=== PATIENT | male | born 1955 | race Caucasian/White ===

== ENCOUNTER 2020-03-07 20:18 | Inpatient (IN) | payer OTHER, SELFPAY ==
[~2020-03-07] VITALS: Ht 170.2 cm; Wt 96.6 kg
[2020-03-07 20:26] VITALS: BP_SYST 129
[2020-03-07 21:39] LABS: INR 1.1 (0.80-1.20); PROTHROMBIN TIME 10.8 SECS (9.5-12.5)
[2020-03-07 21:53] LABS: BASOPHILS % (AUTO) 0.1 % (0.0-2.0); HEMATOCRIT 44.5 % (36-54); HEMOGLOBIN 15.1 g/dL (14.0-18.0); LYMPHOCYTES # (AUTO) 0.7 K/uL (1.0-5.5); MEAN CORPUSCULAR HEMOGLOBIN 32 pg (27-31); MEAN CORPUSCULAR HGB CONC 34 % (32-36); MEAN CORPUSCULAR VOLUME 95 fL (79.0-98.0); MONOCYTES # (AUTO) 2.4 K/uL (0.0-1.0); MONOCYTES % (AUTO) 9.7 % (1.7-9.3); NEUTROPHILS # (AUTO) 21.6 K/uL (1.8-7.7); NEUTROPHILS % (AUTO) 87.2 % (40.0-70.0); PLATELET COUNT (AUTO) 166 K/uL (130-430); RED BLOOD CELL COUNT(AUTO) 4.68 MIL/uL (4.2-6.2); RED CELL DISTRIBUTION WIDTH 12.9 % (9.0-15.0); WHITE BLOOD COUNT (AUTO) 24.8 K/uL (4.8-10.8)
[2020-03-07 21:56] LABS: CALCIUM 8.7 mg/dL (8.4-11.0); CREATININE 0.78 mg/dL (0.55-1.30); POTASSIUM 3.6 mmol/L (3.5-5.1)
[2020-03-07 22:06] LABS: TOTAL BILIRUBIN 1.3 mg/dL (0.0-1.0)
[2020-03-07 22:24] LABS: C-REACTIVE PROTEIN QUANT 5.4 mg/dL (0-0.5)
[2020-03-07 22:33] LABS: BILIRUBIN,URINE NEGATIVE (NEGATIVE); CLARITY/URINE SL CLOUDY (CLEAR); COLOR,URINE YELLOW (YELLOW); GLUCOSE,URINE TRACE (NEGATIVE); KETONES,URINE TRACE (NEGATIVE); LEUKOCYTE ESTERASE ,URINE 2+ (NEGATIVE); NITRITE, URINE POSITIVE (NEGATIVE); PH,URINE 5.5 (5.0-8.0); PROTEIN URINE 1+ (NEGATIVE)
[2020-03-07] MEDS ORDERED: BACL10TA PO (22:38)
[2020-03-07] MEDS ORDERED: ASCO500T20 PO (22:38)
[2020-03-07] MEDS ORDERED: LIP20 PO (22:38)
[2020-03-07] MEDS ORDERED: DOCU250C14 PO (22:38)
[2020-03-07] MEDS ORDERED: VITD2000 PO (22:38)
[2020-03-07] MEDS ORDERED: DIPH25CA83 PO (22:38)
[2020-03-07] MEDS ORDERED: CLOP75TA32 PO (22:38)
[2020-03-07] MEDS ORDERED: ASPI-1155 PO (22:38)
[2020-03-07] MEDS ORDERED: CEL20 PO (22:38)
[2020-03-07] MEDS ORDERED: GLU500 PO (22:38)
[2020-03-07] MEDS ORDERED: ZINC220T4 PO (22:38)
[2020-03-07] MEDS ORDERED: NEU300 PO (22:38)
[2020-03-07] MEDS ORDERED: TRAZ-250 PO (22:38)
[2020-03-07] MEDS ORDERED: LEVE500T9 PO (22:38)
[2020-03-07 22:55] LABS: BLOOD, URINE TRACE (NEGATIVE)
[2020-03-07 23:08] LABS: BACTERIA,URINE MANY /HPF (None Seen); WBC,URINE 80-100 /HPF (0-3)
[2020-03-07 23:10] LABS: MUCUS,URINE None Seen /LPF (None Seen); URINE AMORPHOUS URATE 2+ /HPF (None Seen)
[2020-03-07] MEDS ORDERED: cefTRIAXone 1 GM IVPB PREMIX 50 ML IV ONE (23:30)
[2020-03-07] MEDS ORDERED: AZITHROMYCIN 500 MG in NS 250 ML IV ONE (23:30)
[2020-03-08] MEDS ORDERED: cefTRIAXone 1 GM VIAL ONE (00:03)
[2020-03-08] MEDS ORDERED: NACL 0.9% 1,000 ML IV ONE ×2 (03:30)
[2020-03-08] MEDS ORDERED: DOXYCYCLINE HYCLATE 100 MG CAPSULE ONE (03:55)
[2020-03-08] MEDS ORDERED: DOXYCYCLINE HYCLATE 100 MG CAPSULE PO ONE (04:00)
[2020-03-08] MEDS: PIPERACILLIN/TAZO 3.375 GM in NS 50 ML IV SCH ×3 (06:00→16:55)
[2020-03-08] MEDS ORDERED: *LOVENOX 1MG/KG Q12H/PHARMACY XX ONE (09:30)
[2020-03-08] MEDS ORDERED: ALBUTEROL MDI INHALATION 8 GM INH INH SCH (10:15)
[2020-03-08] MEDS ORDERED: ALBUTEROL MDI INHALATION 8 GM INH INH PRN (10:15)
[2020-03-08] MEDS ORDERED: GABAPENTIN 300 MG CAPSULE PO ONE (11:00)
[2020-03-08] MEDS ORDERED: ASPIRIN 81 MG TAB.CHEW PO ONE (11:00)
[2020-03-08] MEDS ORDERED: CHOLECALCIFEROL (VITAMIN D3) 2,000 UNIT TABLET PO ONE (11:00)
[2020-03-08] MEDS ORDERED: BACLOFEN 10 MG TABLET PO ONE (11:00)
[2020-03-08] MEDS ORDERED: CITALOPRAM HYDROBROMIDE 20 MG TABLET PO ONE (11:00)
[2020-03-08] MEDS ORDERED: ASCORBIC ACID 500 MG TABLET PO ONE (11:00)
[2020-03-08] MEDS ORDERED: CLOPIDOGREL BISULFATE 75 MG TABLET PO ONE (11:00)
[2020-03-08] MEDS ORDERED: levETIRAcetam 500 MG TABLET PO ONE (11:00)
[2020-03-08] MEDS ORDERED: DOCUSATE SODIUM 250 MG CAPSULE PO ONE (11:00)
[2020-03-08 12:37] VITALS: BP_SYST 125
[2020-03-08] MEDS: BACLOFEN 10 MG TABLET PO SCH ×2 (14:20→21:00)
[2020-03-08] MEDS ORDERED: DIPHENHYDRAMINE HCL 25 MG CAPSULE PO PRN (14:45)
[2020-03-08] MEDS ORDERED: DIPHENHYDRAMINE HCL 25 MG CAPSULE PO SCH (15:00)
[2020-03-08 15:27] VITALS: BP_SYST 127
[2020-03-08] MEDS: NACL 0.9% 1,000 ML IV SCH (15:28)
[2020-03-08] MEDS: ACETAMINOPHEN 325 MG TABLET PO PRN (15:28)
[2020-03-08] MEDS: INSULIN REGULAR, HUMAN 100 UNITS/ML, 10 ML VIAL (humuLIN R) SUBCUT PRN (16:25)
[2020-03-08 20:00] VITALS: BP_SYST 144
[2020-03-08] MEDS: GABAPENTIN 300 MG CAPSULE PO SCH (21:00)
[2020-03-08] MEDS: ENOXAPARIN SODIUM 40 MG/0.4 ML SYRINGE SUBCUT SCH (21:00)
[2020-03-08] MEDS: traZODone HCL 50 MG TABLET (DESYREL) PO SCH (21:00)
[2020-03-08] MEDS: ATORVASTATIN 20 MG TABLET PO SCH (21:00)
[2020-03-08] MEDS ORDERED: TAMSULOSIN HCL 0.4 MG CAP PO SCH (21:00)
[2020-03-08] MEDS: LACTOBACILLUS RHAMNOSUS GG 1 CAP CAPSULE PO SCH (21:00)
[2020-03-09] MEDS: NACL 0.9% 1,000 ML IV SCH ×2 (03:33→17:45)
[2020-03-09] MEDS: PIPERACILLIN/TAZO 3.375 GM in NS 50 ML IV SCH ×5 (05:35→17:45)
[2020-03-09 07:48] LABS: BASOPHILS # (AUTO) 0.1 K/uL (0.0-0.2); BASOPHILS % (AUTO) 0.5 % (0.0-2.0); EOSINOPHILS # (AUTO) 0.1 K/uL (0.0-0.4); EOSINOPHILS % (AUTO) 0.8 % (0.0-4.0); HEMATOCRIT 41.5 % (36-54); LYMPHOCYTES # (AUTO) 0.9 K/uL (1.0-5.5); LYMPHOCYTES % (AUTO) 8.3 % (20.5-51.5); MEAN CORPUSCULAR HEMOGLOBIN 33 pg (27-31); MEAN CORPUSCULAR HGB CONC 34 % (32-36); MEAN CORPUSCULAR VOLUME 96 fL (79.0-98.0); MONOCYTES # (AUTO) 1.2 K/uL (0.0-1.0); MONOCYTES % (AUTO) 11.3 % (1.7-9.3); NEUTROPHILS # (AUTO) 8.4 K/uL (1.8-7.7); NEUTROPHILS % (AUTO) 79.1 % (40.0-70.0); PLATELET COUNT (AUTO) 148 K/uL (130-430); RED BLOOD CELL COUNT(AUTO) 4.33 MIL/uL (4.2-6.2); RED CELL DISTRIBUTION WIDTH 13.4 % (9.0-15.0); WHITE BLOOD COUNT (AUTO) 10.6 K/uL (4.8-10.8)
[2020-03-09 07:59] LABS: CALCIUM 8.2 mg/dL (8.4-11.0); CREATININE 0.83 mg/dL (0.55-1.30); POTASSIUM 3.8 mmol/L (3.5-5.1)
[2020-03-09] MEDS: CHOLECALCIFEROL (VITAMIN D3) 2,000 UNIT TABLET PO SCH (08:22)
[2020-03-09] MEDS: ASCORBIC ACID 500 MG TABLET PO SCH (08:22)
[2020-03-09] MEDS: levETIRAcetam 500 MG TABLET PO SCH (08:22)
[2020-03-09] MEDS: ASPIRIN 81 MG TAB.CHEW PO SCH (08:22)
[2020-03-09] MEDS: BACLOFEN 10 MG TABLET PO SCH ×3 (08:22→22:29)
[2020-03-09] MEDS: GABAPENTIN 300 MG CAPSULE PO SCH ×2 (08:22→22:29)
[2020-03-09] MEDS: LACTOBACILLUS RHAMNOSUS GG 1 CAP CAPSULE PO SCH ×2 (08:22→22:29)
[2020-03-09] MEDS: CLOPIDOGREL BISULFATE 75 MG TABLET PO SCH (08:22)
[2020-03-09] MEDS: CITALOPRAM HYDROBROMIDE 20 MG TABLET PO SCH (08:23)
[2020-03-09] MEDS: metFORMIN HCL 500 MG TABLET PO SCH (08:23)
[2020-03-09] MEDS ORDERED: DOCUSATE SODIUM 250 MG CAPSULE PO SCH (09:00)
[2020-03-09] MEDS ORDERED: ALBUTEROL SULFATE 0.083% 2.5 MG/3 ML VIAL.NEB INH PRN (09:00)
[2020-03-09] MEDS: ALBUTEROL SULFATE 0.083% 2.5 MG/3 ML VIAL.NEB INH SCH ×2 (11:00→15:00)
[2020-03-09 12:00] VITALS: BP_SYST 126
[2020-03-09] MEDS: INSULIN REGULAR, HUMAN 100 UNITS/ML, 10 ML VIAL (humuLIN R) SUBCUT PRN ×2 (12:43→23:00)
[2020-03-09 13:23] VITALS: BP_SYST 126
[2020-03-09 16:00] VITALS: BP_SYST 125
[2020-03-09] MEDS: DEXAMETHASONE SOD PHOSPHATE 10 MG/ML VIAL IVP SCH (16:15)
[2020-03-09 20:00] VITALS: BP_SYST 145
[2020-03-09] MEDS: ATORVASTATIN 20 MG TABLET PO SCH (22:29)
[2020-03-09] MEDS: traZODone HCL 50 MG TABLET (DESYREL) PO SCH (22:29)
[2020-03-09] MEDS: ENOXAPARIN SODIUM 40 MG/0.4 ML SYRINGE SUBCUT SCH (22:30)
[2020-03-10] MEDS: PIPERACILLIN/TAZO 3.375 GM in NS 50 ML IV SCH ×4 (05:12→12:30)
[2020-03-10 06:30] LABS: BASOPHILS % (AUTO) 0.1 % (0.0-2.0); HEMATOCRIT 45.4 % (36-54); HEMOGLOBIN 15.4 g/dL (14.0-18.0); LYMPHOCYTES # (AUTO) 0.5 K/uL (1.0-5.5); LYMPHOCYTES % (AUTO) 8.7 % (20.5-51.5); MEAN CORPUSCULAR HEMOGLOBIN 32 pg (27-31); MEAN CORPUSCULAR HGB CONC 34 % (32-36); MEAN CORPUSCULAR VOLUME 95 fL (79.0-98.0); MONOCYTES # (AUTO) 0.3 K/uL (0.0-1.0); MONOCYTES % (AUTO) 5.6 % (1.7-9.3); NEUTROPHILS # (AUTO) 4.9 K/uL (1.8-7.7); NEUTROPHILS % (AUTO) 85.6 % (40.0-70.0); PLATELET COUNT (AUTO) 177 K/uL (130-430); RED BLOOD CELL COUNT(AUTO) 4.76 MIL/uL (4.2-6.2); WHITE BLOOD COUNT (AUTO) 5.7 K/uL (4.8-10.8)
[2020-03-10] MEDS: INSULIN REGULAR, HUMAN 100 UNITS/ML, 10 ML VIAL (humuLIN R) SUBCUT PRN ×3 (06:43→22:35)
[2020-03-10] MEDS: ALBUTEROL SULFATE 0.083% 2.5 MG/3 ML VIAL.NEB INH SCH (07:44)
[2020-03-10 08:00] VITALS: BP_SYST 149
[2020-03-10 08:02] LABS: ALBUMIN 2.6 g/dL (3.4-4.8); CALCIUM 8.6 mg/dL (8.4-11.0); CREATININE 1.12 mg/dL (0.55-1.30); TOTAL BILIRUBIN 0.6 mg/dL (0.0-1.0)
[2020-03-10] MEDS: CITALOPRAM HYDROBROMIDE 20 MG TABLET PO SCH (08:16)
[2020-03-10] MEDS: ASPIRIN 81 MG TAB.CHEW PO SCH (08:16)
[2020-03-10] MEDS: BACLOFEN 10 MG TABLET PO SCH ×3 (08:16→22:13)
[2020-03-10] MEDS: GABAPENTIN 300 MG CAPSULE PO SCH ×2 (08:17→22:13)
[2020-03-10] MEDS: ASCORBIC ACID 500 MG TABLET PO SCH (08:17)
[2020-03-10] MEDS: LACTOBACILLUS RHAMNOSUS GG 1 CAP CAPSULE PO SCH ×2 (08:17→22:13)
[2020-03-10] MEDS: levETIRAcetam 500 MG TABLET PO SCH (08:17)
[2020-03-10] MEDS: metFORMIN HCL 500 MG TABLET PO SCH (08:17)
[2020-03-10] MEDS: CHOLECALCIFEROL (VITAMIN D3) 2,000 UNIT TABLET PO SCH (08:17)
[2020-03-10] MEDS: CLOPIDOGREL BISULFATE 75 MG TABLET PO SCH (08:18)
[2020-03-10] MEDS: NACL 0.9% 1,000 ML IV SCH ×2 (08:24→22:13)
[2020-03-10] MEDS: ACETAMINOPHEN 325 MG TABLET PO PRN (08:24)
[2020-03-10 12:00] VITALS: BP_SYST 130
[2020-03-10] MEDS: DEXAMETHASONE SOD PHOSPHATE 10 MG/ML VIAL IVP SCH (15:20)
[2020-03-10 16:00] VITALS: BP_SYST 137
[2020-03-10] MEDS: ERTAPENEM SODIUM 0.5 GM in NS 50 ML IV SCH (17:23)
[2020-03-10 20:30] VITALS: BP_SYST 130
[2020-03-10] MEDS: ATORVASTATIN 20 MG TABLET PO SCH (22:13)
[2020-03-10] MEDS: traZODone HCL 50 MG TABLET (DESYREL) PO SCH (22:13)
[2020-03-10] MEDS: ENOXAPARIN SODIUM 40 MG/0.4 ML SYRINGE SUBCUT SCH (22:21)
[2020-03-11 00:20] VITALS: BP_SYST 128; BP_SYST 136
[2020-03-11] MEDS: INSULIN REGULAR, HUMAN 100 UNITS/ML, 10 ML VIAL (humuLIN R) SUBCUT PRN ×4 (06:31→21:18)
[2020-03-11 08:00] VITALS: BP_SYST 125
[2020-03-11] MEDS: ASPIRIN 81 MG TAB.CHEW PO SCH (08:20)
[2020-03-11] MEDS: metFORMIN HCL 500 MG TABLET PO SCH (08:21)
[2020-03-11] MEDS: levETIRAcetam 500 MG TABLET PO SCH (08:21)
[2020-03-11] MEDS: LACTOBACILLUS RHAMNOSUS GG 1 CAP CAPSULE PO SCH ×2 (08:21→21:11)
[2020-03-11] MEDS: CLOPIDOGREL BISULFATE 75 MG TABLET PO SCH (08:21)
[2020-03-11] MEDS: CHOLECALCIFEROL (VITAMIN D3) 2,000 UNIT TABLET PO SCH (08:21)
[2020-03-11] MEDS: GABAPENTIN 300 MG CAPSULE PO SCH ×2 (08:21→21:12)
[2020-03-11] MEDS: CITALOPRAM HYDROBROMIDE 20 MG TABLET PO SCH (08:21)
[2020-03-11] MEDS: ASCORBIC ACID 500 MG TABLET PO SCH (08:21)
[2020-03-11] MEDS: BACLOFEN 10 MG TABLET PO SCH ×3 (08:22→21:12)
[2020-03-11] MEDS: ACETAMINOPHEN 325 MG TABLET PO PRN ×2 (08:25→21:12)
[2020-03-11 12:00] VITALS: BP_SYST 122
[2020-03-11] MEDS: NACL 0.9% 1,000 ML IV SCH ×2 (12:27→21:16)
[2020-03-11] MEDS: ERTAPENEM SODIUM 0.5 GM in NS 50 ML IV SCH (15:55)
[2020-03-11] MEDS: DEXAMETHASONE SOD PHOSPHATE 10 MG/ML VIAL IVP SCH (15:55)
[2020-03-11 16:00] VITALS: BP_SYST 130
[2020-03-11] MEDS: ALBUTEROL SULFATE 0.083% 2.5 MG/3 ML VIAL.NEB INH SCH ×2 (17:02→19:28)
[2020-03-11 20:00] VITALS: BP_SYST 137
[2020-03-11] MEDS: ENOXAPARIN SODIUM 40 MG/0.4 ML SYRINGE SUBCUT SCH (21:11)
[2020-03-11] MEDS: traZODone HCL 50 MG TABLET (DESYREL) PO SCH (21:12)
[2020-03-11] MEDS: ATORVASTATIN 20 MG TABLET PO SCH (21:12)
[2020-03-12] VITALS: BP_SYST 106
[2020-03-12] MEDS: INSULIN REGULAR, HUMAN 100 UNITS/ML, 10 ML VIAL (humuLIN R) SUBCUT PRN (06:03)
[2020-03-12] MEDS: ALBUTEROL SULFATE 0.083% 2.5 MG/3 ML VIAL.NEB INH SCH (07:00)
[2020-03-12 07:43] VITALS: BP_SYST 156
[2020-03-12 08:03] VITALS: BP_SYST 156
[2020-03-12] MEDS: ASPIRIN 81 MG TAB.CHEW PO SCH (08:19)
[2020-03-12] MEDS: CITALOPRAM HYDROBROMIDE 20 MG TABLET PO SCH (08:19)
[2020-03-12] MEDS: metFORMIN HCL 500 MG TABLET PO SCH (08:19)
[2020-03-12] MEDS: ASCORBIC ACID 500 MG TABLET PO SCH (08:19)
[2020-03-12] MEDS: LACTOBACILLUS RHAMNOSUS GG 1 CAP CAPSULE PO SCH (08:19)
[2020-03-12] MEDS: levETIRAcetam 500 MG TABLET PO SCH (08:19)
[2020-03-12] MEDS: CHOLECALCIFEROL (VITAMIN D3) 2,000 UNIT TABLET PO SCH (08:20)
[2020-03-12] MEDS: BACLOFEN 10 MG TABLET PO SCH (08:20)
[2020-03-12] MEDS: CLOPIDOGREL BISULFATE 75 MG TABLET PO SCH (08:20)
[2020-03-12] MEDS: ACETAMINOPHEN 325 MG TABLET PO PRN (08:21)
[2020-03-12] MEDS: GABAPENTIN 300 MG CAPSULE PO SCH (08:22)
[2020-03-12 09:55] VITALS: BP_SYST 156
== END 2020-03-12 11:55 | DRG 871 ==
LOC: SED 20:18 → STU 03-08 03:28
PROVIDERS: ADMIT Internal Medicine; ATTEND Internal Medicine
PROC: 05HY33Z Insertion of Infusion Device into Upper Vein, Percutaneous Approach (ICD-10-PCS; principal; 2020-03-08)
DX: A41.89 Other specified sepsis (principal); J96.00 Acute respiratory failure, unspecified whether with hypoxia or hypercapnia; N39.0 Urinary tract infection, site not specified; N10 Acute pyelonephritis; Z16.12 Extended spectrum beta lactamase (ESBL) resistance; E44.1 Mild protein-calorie malnutrition; I69.351 Hemiplegia and hemiparesis following cerebral infarction affecting right dominant side; J44.9 Chronic obstructive pulmonary disease, unspecified; E11.9 Type 2 diabetes mellitus without complications; I10 Essential (primary) hypertension; Z20.822 Contact with and (suspected) exposure to COVID-19; E66.9 Obesity, unspecified; R13.10 Dysphagia, unspecified; F32.9 Major depressive disorder, single episode, unspecified; E78.5 Hyperlipidemia, unspecified; B96.20 Unspecified Escherichia coli [E. coli] as the cause of diseases classified elsewhere; B96.1 Klebsiella pneumoniae [K. pneumoniae] as the cause of diseases classified elsewhere; I69.321 Dysphasia following cerebral infarction; Z68.33 Body mass index [BMI] 33.0-33.9, adult; Z79.82 Long term (current) use of aspirin; Z79.899 Other long term (current) drug therapy
CPT/HCPCS: 36415; 36600; 71045; 76770; 80048; 80053; 81000-TC; 82550-TC; 82728; 82803-TC; 82962; 83036; 83605; 83615-TC; 83735-TC; 83880; 84484; 85025; 85379; 85384-TC; 85610-TC; 85730-TC; 86140; 87040-TC; 87081; 87086; 92610-GN; 93005; 93970; 94640; 96361; 96365; 97110-GP; 97112-GP; 97116-GP; 99285; G0378; J0696; J1100; J1335; J1650; J1815; J2543; J7030; J7613; U0003